=== PATIENT | male | born 1955 | race Caucasian/White ===

== ENCOUNTER → 2016-07-30 | Outpatient (CLI) | payer OTHER ==
[~2016-07-30] MED LIST: DOXY100C2 PO; HYDR1TAB3 PO; PRM25T PO
--- NOTE | 2016-07-30 13:22 | Diagnostic Imaging Report ---
INDICATION: Palpable lump, left scrotum. FINDINGS: The right testicle measures 4.0 x 2.1 x 3.1 cm. The left testicle 4.0 x 2.4 x 2.8 cm. Testicles are homogeneous with no masses. Normal blood flow to both testes. There is hydrocele on the left. There is a large cyst along the epididymis measuring approximately 4.3 x 3.5 cm. Right epididymis shows cyst measuring 2.3 x 1.7 cm. There is normal blood flow to the epididymides. No evidence of varicocele. IMPRESSION: Bilateral cysts in the scrotum largest on the left which does appear somewhat thickwalled. These could represent epididymal cysts; however, these could represent sperm granulomas if patient has had vasectomy. Dictated by: Dictated on workstation # [id number]
== END ==
LOC: RAD 12:05
PROVIDERS: ATTEND Family Medicine
DX: L72.9 Follicular cyst of the skin and subcutaneous tissue, unspecified (principal)
CPT/HCPCS: 76870

== ENCOUNTER 2017-06-09 05:33 | Outpatient (CLI) | payer OTHER ==
[~2017-06-09] VITALS: Ht 177.8 cm; Wt 103.9 kg
[2017-06-09] MEDS ORDERED: OMEP20CA12 PO (10:31)
[2017-06-09] MEDS ORDERED: LOSA25TA21 PO (10:31)
== END 2017-06-09 10:32 ==
LOC: PREOP 05:33
PROVIDERS: ATTEND Surgery
DX: Z01.818 Encounter for other preprocedural examination (principal); K21.9 Gastro-esophageal reflux disease without esophagitis; R13.10 Dysphagia, unspecified

== ENCOUNTER 2017-06-13 12:30 | Day surgery (SDC) | payer OTHER ==
[~2017-06-13] VITALS: Ht 177.8 cm; Wt 103.9 kg
[~2017-06-13 12:30] MED LIST changes: +LOSA25TA21 PO; +OMEP20CA12 PO
[2017-06-13] MEDS ORDERED: NS IV 500 ML 500 ML ONE (12:47)
[2017-06-13 12:55] VITALS: BP 163/88
[2017-06-13] MEDS ORDERED: NS IV 500 ML 500 ML IV PRN (13:14)
--- NOTE | 2017-06-13 14:20 | Conscious Sedation/ASA ---
Conscious Sedation Pre-Proced Time Reviewed: 14:20 ASA Class: 2 Airway Mallampati Classification: (kletsel dehe wintun appropriate class) I. II. III, IV Lungs Heart ASA score ASA 1: a normal healthy patient ASA 2: a patient with a mild systemic disease (mid diabetes, controlled hypertension, obesity ASA 3: a patient with a severe systemic disease that limits activity (angina , COPD, prior Myocardial infarction) ASA 4: a patient with an incapacitating disease that is a constant threat to life (CHF, renal failure) ASA 5: a moribund patient not expected to survive 24 hrs. (ruptured aneurysm) ASA 6: a declared brain patient whose organs are being harvested. For emergent operations, add the letter E after the classification Grade 1 Sedation Plan: Discussed options with patient/fam Note The patient is an appropriate candidate to undergo the planned procedure, sedation, and anesthesia. The patient immediately re-assessed prior to indication. JARVIS WILSON MD Jun 13, 2017 2:20 pm
--- NOTE | 2017-06-13 14:20 | History & Physicial ---
History of Present Illness History of Present Illness Reason for visit/HPI to undergo an upper endoscopy with possible balloon dilatation regarding dysphagia. Date of Admission 06/13/17 Date Seen by Provider: Jun 13, 2017 Time Seen by Provider: 14:18 I consulted on this patient on 06/13/17 14:17 Attending Physician Jarvis Jimenez MD Admitting Physician Paula Dodd MD Consult Allergies and Home Medications Allergies Coded Allergies: No Known Drug Allergies (Unverified , 03/05/10) Home Medications Losartan Potassium 25 Mg Tablet, 25 MG PO DAILY, (Reported) Omeprazole 20 Mg Capsule.dr, 20 MG PO HS, (Reported) Patient Home Medication List Home Medication List Reviewed: Yes Past Ljztnjp-Qjpluj-Irvbni Hx Patient Social History Marrital Status: Employed/Student: retired Alcohol Use: Occasionally Uses Recreational Drug Use: No Smoking Status: Never a Smoker Recent Foreign Travel: No Contact w/other who traveled: No Recent Hopitalizations: No Recent Infectious Disease Expo: No Immunizations Up To Date Tetanus Booster (TDap): Unknown Pediatric: No Surgeries Yes Orthopedic Respiratory No Cardiovascular Yes Hypertension Reproductive System Hx Reproductive Disorders: No Sexually Transmitted Disease: No Gastrointestinal Yes Gastroesophageal Reflux Musculoskeletal Yes Arthritis Constitutional: no symptoms reported EENTM: no symptoms reported Respiratory: no symptoms reported Cardiovascular: no symptoms reported Gastrointestinal: see HPI Genitourinary: no symptoms reported Musculoskeletal: joint pain Skin: no symptoms reported Psychiatric/Neurological: No Symptoms Reported Physical Exam Vital Signs Vital Signs - First Documented 06/13/17 12:55 Temp 98.0 Pulse 75 Resp 18 B/P (MAP) 163/88 (113) Pulse Ox 95 O2 Delivery Room Air Capillary Refill : General Appearance: No Apparent Distress Neck: Normal Inspection Respiratory: Lungs Clear Cardiovascular: Regular Rate, Rhythm, No Edema Gastrointestinal: Non Tender, Soft Back: Normal Inspection Extremity: Normal Inspection Skin: Warm/Dry Assessment/Plan Assessment and Plan gentleman with dysphagia. For upper endoscopy with possible balloon dilatation Problems: Admission Diagnosis Admission Status: Other (Outpt Proc) JARVIS JIMENEZ MD Jun 13, 2017 2:20 pm
[2017-06-13] MEDS ORDERED: fentaNYL INJECTION 100 MCG/2 ML AMP ONE (14:24)
[2017-06-13] MEDS ORDERED: MIDAZOLAM 2 MG/2 ML (VERSED) VIAL ONE ×3 (14:24)
[2017-06-13] MEDS ORDERED: HURRICAINE EXT TUBE (BENZOCAINE) ONE (14:25)
[2017-06-13] MEDS: fentaNYL INJECTION 100 MCG/2 ML AMP IVP PRN ×2 (14:52→14:59)
[2017-06-13] MEDS: MIDAZOLAM 2 MG/2 ML (VERSED) VIAL IVP PRN ×2 (14:54→14:58)
[2017-06-13] MEDS ORDERED: HURRICAINE EXT TUBE (BENZOCAINE) XX ONE (15:15)
[2017-06-13 15:20] VITALS: BP 122/65
[2017-06-13 15:40] VITALS: BP 144/89
--- NOTE | 2017-06-13 15:40 | Endo Procedure Record ---
Endo Procedure Report Date of Procedure Last Colonoscopy: Yes (4 years ago) Jun 13, 2017 Surgeon (s) JARVIS WILSON MD Post Procedure/Op Diagnosis Distal esophageal stricture with active esophagitis Procedure Performed EGD with balloon dilatation Description of Procedure Anesthesia Type: Conscious Sedation Specimen(s) collected/removed None Description of the Procedure Indication for the procedure: This gentleman came in for an upper endoscopy with possible balloon dilatation to address dysphagia. Informed consent was obtained after reviewing the procedure. Description of the procedure: He was placed in left lateral decubitus position and his vital signs were monitored. Conscious sedation was achieved using Versed and fentanyl. The flexible gastroscope was then introduced down the esophagus, past the stomach, into the proximal duodenum. Findings: Esophagus: Inflamed distal esophagus with a peptic stricture. It was dilated to 18 mm with the balloon. Stomach and duodenum were normal He tolerated the procedure well and was taken back to the nursing area in a stable condition. Impression: Dysphagia due to a distal esophageal, peptic stricture. Balloon dilatation completed. Continue proton pump inhibitors. Copies To: PAYAL HURTADO MD, XAVIER M MD Jun 13, 2017 15:40
[2017-06-13 15:57] VITALS: BP 144/89
== END 2017-06-13 15:50 | disposition home or self-care (01) ==
LOC: ENDO 12:30
PROVIDERS: ATTEND Surgery
DX: K22.2 Esophageal obstruction (principal); K20.9 Esophagitis, unspecified; I10 Essential (primary) hypertension

== ENCOUNTER 2017-08-03 10:40 | Emergency (ER) | payer OTHER ==
[~2017-08-03] VITALS: Ht 177.8 cm; Wt 104.3 kg
[2017-08-03] MEDS ORDERED: LIDOCAINE 1% INJ 20 ML 20 ML VIAL ONE (10:47)
[2017-08-03] MEDS ORDERED: LIDOCAINE 2% 20 ML (XYLOCAINE) VIAL INJ ONE (11:00)
[2017-08-03] MEDS ORDERED: TETANUS,DIPTH,PERTUSS P/F (BOOSTRIX) 0.5 ML VIAL IM ONE (11:00)
--- NOTE | 2017-08-03 11:32 | ED EENT ---
History of Present Illness General Chief Complaint: Laceration Stated Complaint: EAR LAC Nursing Triage Note: ARRIVED VIA AMB TO ROOM 07. 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 DENIES LOC OR NECK PAIN. Source: patient Exam Limitations: no limitations History of Present Illness Date Seen by Provider: August 03, 2017 Time Seen by Provider: 11:26 Initial Comments to ER with a laceration to the right ear. 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 His tetanus is not up-to-date.he did not lose consciousness. No other injury. No headache. Timing/Duration: abrupt Severity: mild Associated Symptoms: facial pain/swelling Allergies and Home Medications Allergies Coded Allergies: No Known Drug Allergies (Unverified , 03/05/10) Home Medications Losartan Potassium 25 Mg Tablet, 25 MG PO DAILY, (Reported) Omeprazole 20 Mg Capsule.dr, 20 MG PO HS, (Reported) Patient Home Medication List Home Medication List Reviewed: Yes Review of Systems Constitutional: see HPI Eyes: No Symptoms Reported Ears: See HPI Nose: no symptoms reported Mouth: no symptoms reported Throat: no symptoms reported Respiratory: no symptoms reported Cardiovascular: no symptoms reported Past Yqtagzj-Nokvdy-Rixgln Hx Patient Social History Alcohol Use: Occasionally Uses Recreational Drug Use: No Smoking Status: Never a Smoker Recent Foreign Travel: No Contact w/Someone Who Travel: No Recent Infectious Disease Expo: No Recent Hopitalizations: No Immunizations Up To Date Tetanus Booster (TDap): Unknown PED Vaccines UTD: No Past Medical History Surgeries: Yes Orthopedic Respiratory: No Cardiac: Yes Hypertension Neurological: No Reproductive Disorders: No Sexually Transmitted Disease: No Genitourinary: No Gastrointestinal: Yes Gastroesophageal Reflux Musculoskeletal: Yes Arthritis Endocrine: No Cancer: No Psychosocial: No Integumentary: No Blood Disorders: No Physical Exam Vital Signs Vital Signs - First Documented 08/03/17 10:44 Temp 98.0 Pulse 119 Resp 18 B/P (MAP) 144/99 (114) Pulse Ox 96 General Appearance: WD/WN, no apparent distress Eyes: right eye other (there is a laceration down to the cartilage beginning at the anti-helix and extending posterior to the helix. Separate 1 cm laceration just anterior and inferior to the ear over the right cheek); bilateral eye normal inspection, bilateral eye PERRL, bilateral eye EOMI Ears: right ear canal normal, right ear TM normal; left ear auricle normal Mouth/Throat: normal mouth inspection, pharynx normal Neck: non-tender, full range of motion Cardiovascular: regular rate, rhythm, no murmur Neurologic/Psychiatric: alert, normal mood/affect, oriented x 3 Skin: normal color, warm/dry Procedures/Interventions Wound Location: Ears Wound Length (cm): 3.5 Wound's Depth, Shape: linear, irregular, sub Q (2 cartilage) Wound Explored: clean Irrigated w/ Saline (ccs): 50 (chlorhexidine/saline solution) Anesthesia: 1% Lidocaine Suture: Ethlion Suture Size: 5-0 Number of Sutures: 15 Layer Closure?: 1 Number Deep Layer Sutures: 0 Progress regular block was done using 5 mL of 2% lidocaine without epinephrine. Local anesthesia was done to the laceration anterior and inferior to the right ear. This 1 cm laceration was then closed with 2 simple interrupted 5-0 Ethilon sutures. The laceration to theupper part of the ear beginning at the antihelix extending posteriorly to the helix measured 2.5 cm and extends down to the cartilage. There is no cartilage laceration but the skin has been lifted up off the cartilage. After adequate anesthesia with lidocaine , the traumatic skin flap waslifted and irrigated beneath it with chlorhexidine/saline solution. No foreign bodies identified. Then closed with 13 simple interrupted sutures size 5 -0 Ethilon.folded gauze was placed behind the helix/antihelixand additional gauze placed on top of the outer ear and this was wrapped with Coban to create a pressure dressing to reduce the likelihood of auricular hematoma. I did warn him of this possibility and the possibility of infection so I'll send Keflex antibiotics to [facility], his pharmacy of choice. He does have follow-up already scheduled with Dr. DODD on 08/09 for this will be fine to have her clinic remove the sutures. Progress/Results/Core Measures Results/Orders My Orders Orders - RHYS RESENDIZ APRN Lidocaine 2% Injection 20 Ml (Xylocaine (08/03/17 11:00) Dipht,Pertuss(Acell),Tet Adult (Boostrix (08/03/17 11:00) Lidocaine 1% Inj 20 Ml (Xylocaine 1% Inj (08/03/17 10:47) Medications Given in ED Current Medications Medications Dose Ordered Sig/Hood Route Start Time Stop Time Status Last Admin Dose Admin Diphtheria/ Tetanus/Acell Pertussis 0.5 ml ONCE ONCE IM 08/03/17 11:00 08/03/17 11:01 DC 08/03/17 11:01 0.5 ML Lidocaine HCl 20 ml STK-MED ONCE .ROUTE 08/03/17 10:47 08/03/17 10:53 DC 08/03/17 11:01 20 ML Vital Signs/I&O 08/03/17 10:44 Temp 98.0 Pulse 119 Resp 18 B/P (MAP) 144/99 (114) Pulse Ox 96 Blood Pressure Mean: 114 Departure Impression Primary Impression: Laceration of ear, external, right, complicated Disposition: HOME, SELF-CARE Condition: Stable Departure-Patient Inst. Decision time for Depature: 11:33 Referrals: PAYAL DODD MD (PCP/Family) Primary Care Physician Patient Instructions: Laceration Repair With Stitches (DC) Add. Discharge Instructions: 1. Keep the pressure dressing in place for the next 2-3 days, you may take it off briefly to shower. after 2-3 days you may leave it open to air.Take antibiotics as directed. Return to ER for any swelling of the ear, fevers, increased pain. Tylenol and Motrin for pain control.Follow-up with Dr. Dodd as scheduled to have the stitches removed.All discharge instructions reviewed with patient and/or family. Voiced understanding. Scripts Cephalexin (Keflex) 500 Mg Capsule 500 MG PO QID, #20 CAP Prov: RHYS RESENDIZ INDUSTRIAL PHARMACIST 08/03/17 Images Ear 1 - Laceration 2 - Laceration 3 - Laceration Copy Copies To 1: PAYAL DODD MD, PETER J APRN August 03, 2017 11:32
[2017-08-03] MEDS ORDERED: CEPH-507 PO (11:35)
[2017-08-03 11:36] VITALS: BP 144/99
== END 2017-08-03 11:36 | disposition home or self-care (01) ==
LOC: EDUNIT# 10:40 → ER 10:42
DX: S01.311A Laceration without foreign body of right ear, initial encounter (principal); I10 Essential (primary) hypertension; K21.9 Gastro-esophageal reflux disease without esophagitis; Z23 Encounter for immunization; W55.89XA Other contact with other mammals, initial encounter
CPT/HCPCS: 13132; 90471; 90715

== ENCOUNTER → 2019-08-24 | Outpatient (CLI) | payer MEDICARE, OTHER ==
[~2019-08-24] VITALS: Ht 177 cm; Wt 105.0 kg
[~2019-08-24] MED LIST changes: +CATHETER FLUSH 10 ML SYR IV PRN; +CEPH-507 PO; -LOSA25TA21 PO; +LOSA25TA41 PO; -OMEP20CA12 PO; +OMEP20CA18 PO; +REGADENOSON 0.4 MG/5 ML SYR (LEXISCAN) IV ONE
--- NOTE | 2019-08-24 10:54 | STRESS TEST ---
DATE OF SERVICE: 08/24/2019 RESTING AND POST REGADENOSON TECHNETIUM-99M TETROFOSMIN SPECT CT IMAGING ORDERING PHYSICIAN: Dr. Henry. PRIMARY PHYSICIAN: Dr. Dodd. CLINICAL DIAGNOSIS: Shortness of breath, near syncope and hypertension. Baseline images were carried out after injection of 10.94 mCi of technetium-99m Tetrofosmin. This was followed by 0.4 mg Regadenoson and 31.2 mCi of technetium-99m Tetrofosmin. The electrocardiogram showed sinus rhythm throughout the study. Left anterior fascicular block is seen. Old inferior wall myocardial infarction cannot be excluded. Review of images at rest and following stress indicates a transient basal inferior perfusion defect. Gated images show normal global left ventricular systolic function with normal regional wall motion. Left ventricular ejection fraction is calculated to be to 75%. Left ventricular end diastolic volume is 53 mL. TID is absent (0.88). CONCLUSIONS: 1. This study is indicative of a small to moderate amount of basal inferior ischemia. 2. Normal regional wall motion. 3. Normal global left ventricular systolic function with a calculated ejection fraction of 75%. Job ID: [id number] DocumentID: [id number] Dictated Date: 08/24/2019 10:23:04 Career Coordinator Date: 08/24/2019 10:53:11 Dictated By: USAMA HENRY MD, MA, FACP, FACC,
== END ==
LOC: CARD 07:10
PROVIDERS: ATTEND Internal Medicine Cardiovascular Disease
DX: I10 Essential (primary) hypertension (principal); R06.02 Shortness of breath; R55 Syncope and collapse
CPT/HCPCS: 78452; 93017; A9502

== ENCOUNTER → 2019-08-27 | Outpatient (CLI) | payer MEDICARE, OTHER ==
[~2019-08-27] MED LIST changes: -CATHETER FLUSH 10 ML SYR IV PRN; -REGADENOSON 0.4 MG/5 ML SYR (LEXISCAN) IV ONE
== END ==
LOC: CARD 08:09
PROVIDERS: ATTEND Internal Medicine Cardiovascular Disease
DX: I35.1 Nonrheumatic aortic (valve) insufficiency (principal); I10 Essential (primary) hypertension; R55 Syncope and collapse
CPT/HCPCS: 93225; 93226; 93306

== ENCOUNTER 2019-10-28 10:09 | Emergency (ER) | payer MEDICARE ==
[~2019-10-28] VITALS: Ht 177 cm; Wt 106.0 kg
[~2019-10-28 10:09] MED LIST changes: +ASPI-983 PO; +IBUP1TAB PO; +MTP100TCR PO
[2019-10-28 10:18] VITALS: BP 162/85
--- NOTE | 2019-10-28 10:46 | ED Lower Extremity ---
General Chief Complaint: General Problems/Pain Stated Complaint: POST HEART CATH/LUMP AND BRUISING ON INCISION Nursing Triage Note: ARRIVED VIA AMB TO ROOM 05. HEART CATH ON TUESDAY BY DR HENRY. STATES HE IS HAVING SOME SWELLING AND BRUISING AROUND THE SITE. Nursing Sepsis Screen: No Definite Risk Source: patient Exam Limitations: no limitations History of Present Illness Date Seen by Provider: Oct 28, 2019 Time Seen by Provider: 10:30 Initial Comments Patient presents ER by private conveyance with chief complaint of swelling and about a 1 inch lump in his right groin. He is 6 days status post heart catheterization through the same site by Dr. Henry. He was warning escape or to come back to the ER should this happen. He's not having any chest pain weakness shortness of breath. No stents were placed and no significant disease was discovered per patient. He has not restarted his aspirin since stopping it before the heart catheterization. He is not on blood thinners. He does take his metoprolol routinely. No other symptoms. No numbness or tingling in the foot. Allergies and Home Medications Allergies Coded Allergies: No Known Drug Allergies (Unverified , 03/05/10) Home Medications Ibuprofen/Diphenhydramine Cit 1 Each Tablet, 1 EACH PO HS, (Reported) Metoprolol Succinate 100 Mg Tab.er.24h, 100 MG PO DAILY, (Reported) Patient Home Medication List Home Medication List Reviewed: Yes Review of Systems Constitutional: No chills, No diaphoresis EENTM: No ear discharge, No ear pain Respiratory: No cough, No short of breath Cardiovascular: No chest pain, No edema Gastrointestinal: No abdominal pain, No nausea, No vomiting Genitourinary: No discharge, No dysuria Musculoskeletal: No back pain, No joint pain Skin: see HPI, change in color All Other Systems Reviewed Negative Unless Noted: Yes Past Wicgevy-Uyksbp-Qiyeha Hx Patient Social History Alcohol Use: Occasionally Uses Alcohol Beverage of Choice: Beer Recreational Drug Use: No Smoking Status: Never a Smoker Type Used: Smokeless Tobacco Recent Foreign Travel: No Contact w/Someone Who Travel: No Recent Infectious Disease Expo: No Recent Hopitalizations: No Immunizations Up To Date Tetanus Booster (TDap): Unknown PED Vaccines UTD: No Date of Influenza Vaccine: Jan 09, 2019 Past Medical History Surgeries: Yes (bilat hand sx, EGD, RIGHT EAR SUTURED) Orthopedic Respiratory: No Cardiac: Yes Hypertension Neurological: Yes Concussion Reproductive Disorders: No Sexually Transmitted Disease: No Genitourinary: No Gastrointestinal: Yes Gastroesophageal Reflux Musculoskeletal: Yes Arthritis Endocrine: No Cancer: No Psychosocial: No Integumentary: No Blood Disorders: No Physical Exam Vital Signs Vital Signs - First Documented 10/28/19 10:18 Temp 37.0 Pulse 75 Resp 16 B/P (MAP) 162/85 (110) Pulse Ox 95 O2 Delivery Room Air Capillary Refill : Less Than 3 Seconds Height, Weight, BMI Height: 5'10.00" Weight: 230lbs. 0.0oz. [id number]; 33.00 BMI Method:Stated General Appearance: WD/WN, no apparent distress HEENT: PERRL/EOMI, pharynx normal Neck: full range of motion, normal inspection Cardiovascular: normal peripheral pulses, regular rate, rhythm Respiratory: no respiratory distress, no accessory muscle use Neurologic/Tendon: normal sensation, normal motor functions, normal tendon func tions Neurologic/Psychiatric: no motor/sensory deficits, alert, normal mood/affect, oriented x 3 Skin: ecchymosis (right groin), other (tender palpable 2 x 3 cm lump in the right groin over the right femoral artery. Nonpulsatile.) Procedures/Interventions Suture Size: 5-0 Progress/Results/Core Measures Results/Orders Lab Results Laboratory Tests Test 10/28/19 10:57 Range/Units White Blood Count 6.2 4.3-11.0 10^3/uL Red Blood Count 4.90 4.35-5.85 10^6/uL Hemoglobin 15.2 13.3-17.7 G/DL Hematocrit 44 40-54 % Mean Corpuscular Volume 91 80-99 FL Mean Corpuscular Hemoglobin 31 25-34 PG Mean Corpuscular Hemoglobin Concent 34 32-36 G/DL Red Cell Distribution Width 13.8 10.0-14.5 % Platelet Count 261 130-400 10^3/uL Mean Platelet Volume 9.4 7.4-10.4 FL My Orders Orders - NATALIYA JUAREZ Cbc No Diff (10/28/19 10:46) Vital Signs/I&O 10/28/19 10:18 Temp 37.0 Pulse 75 Resp 16 B/P (MAP) 162/85 (110) Pulse Ox 95 O2 Delivery Room Air Blood Pressure Mean: 110 Progress Progress Note #1: Time: 10:45 Progress Note The lower extremity is intact neurovascularly speaking. He's not having any evidence of acute anemia and ball are is a mild amount of swelling it is unlikely he has dumped his hemoglobin significantly from 15.6 5 days ago. We will catch a hemogram and consult with Dr. Henry, cardiology. Progress Note #2: Time: 13:15 Progress Note The patient advises that he is no longer interested in waiting and would like to go home. We have strongly encouraged that he follow up tomorrow morning with Dr. Henry if he does decide to leave. Dr. Baldwin states that he will be here in a few minutes. We relayed this information to the patient. Patient says he'll wait another 5 minutes. Departure Impression Primary Impression: Hematoma following angiography Disposition: 07 AGAINST MEDICAL ADVICE Condition: Against Medical Advice Departure-Patient Inst. Decision time for Depature: 13:16 Referrals: PAYAL HURTADO MD (PCP/Family) Primary Care Physician Patient Instructions: HEMATOMA Add. Discharge Instructions: Please plan to follow up with Dr. Henry tomorrow by calling for an appointment. Return to the ER should you start to have worsening swelling pain or numbness in the leg. Return to the ER if you start to have shortness of breath or chest pain. All discharge instructions reviewed with patient and/or family. Voiced understanding. NATALIYA JUAREZ Oct 28, 2019 10:45
[2019-10-28 11:08] LABS: HEMOGLOBIN 15.2 G/DL (13.3-17.7); MEAN PLATELET VOLUME 9.4 FL (7.4-10.4); RED CELL DISTRIBUTION WIDTH 13.8 % (10.0-14.5); WHITE BLOOD COUNT 6.2 10^3/uL (4.3-11.0)
--- NOTE | 2019-10-28 11:39 | NUR ---
IN ROOM TALKING TO THE PT AT THIS TIME.
--- NOTE | 2019-10-28 12:01 | NUR ---
PT UP TO THE BATHROOM. I CALLED AND UPDATED THAT WE WERE WAITING ON DR POPE
--- NOTE | 2019-10-28 13:05 | NUR ---
TALKED WITH PT WHO IS FUSTRTED THAT THE DITCH INSPECTOR HAS NOT ARRIVED. NOTIFIED HIM THAT DR JUAREZ WAS TEXTING HIM AGAIN.
--- NOTE | 2019-10-28 13:10 | NUR ---
DR JUAREZ IN TALKING TO THE PT.
== END 2019-10-28 13:19 | disposition left against medical advice (07) ==
LOC: EDUNIT# 10:09 → ER 10:10
DX: L76.32 Postprocedural hematoma of skin and subcutaneous tissue following other procedure (principal); I10 Essential (primary) hypertension; Z87.820 Personal history of traumatic brain injury; Z95.9 Presence of cardiac and vascular implant and graft, unspecified
CPT/HCPCS: 36415; 85027

== ENCOUNTER → 2019-10-29 | Outpatient (CLI) | payer MEDICARE ==
--- NOTE | 2019-10-29 11:54 | Diagnostic Imaging Report ---
Indication: Right groin pain post catheterization. Findings: Common femoral artery and vein are patent, showed normal waveforms. No findings of AV fistula. No aneurysm or pseudoaneurysm identified. There is a fatty reactive lymph node in the right groin. No discrete drainable fluid collection. Impression: No post catheterization complication apparent. Dictated by: Dictated on workstation # [id number]
== END ==
LOC: RAD 09:57
PROVIDERS: ATTEND Nurse Practitioner Family
DX: R10.31 Right lower quadrant pain (principal); Z95.9 Presence of cardiac and vascular implant and graft, unspecified
CPT/HCPCS: 93926

== ENCOUNTER → 2022-05-31 | Outpatient (CLI) | payer MEDICARE ==
[~2022-05-31] MED LIST changes: +ASPI-1238 PO; -ASPI-983 PO
== END ==
LOC: CARD 09:23
PROVIDERS: ATTEND Internal Medicine Cardiovascular Disease
DX: I51.7 Cardiomegaly (principal); I35.1 Nonrheumatic aortic (valve) insufficiency
CPT/HCPCS: 93306

== ENCOUNTER → 2022-06-15 | Outpatient (CLI) | payer MEDICARE ==
[~2022-06-15] VITALS: Ht 177 cm; Wt 109.0 kg
[~2022-06-15] MED LIST changes: +CATHETER FLUSH 10 ML SYR IVP PRN; +REGADENOSON 0.4 MG/5 ML SYR (LEXISCAN) IV ONE
[2022-06-15 08:56] VITALS: BP 167/94
== END ==
LOC: CARD 07:45
PROVIDERS: ATTEND Nurse Practitioner Family
DX: R06.09 Other forms of dyspnea (principal)
CPT/HCPCS: 78452; 93017; A9502

== ENCOUNTER 2023-01-17 07:32 | Emergency (ER) | payer MEDICARE ==
[~2023-01-17] VITALS: Ht 177.8 cm; Wt 104.3 kg
[~2023-01-17 07:32] MED LIST changes: -CATHETER FLUSH 10 ML SYR IVP PRN; -REGADENOSON 0.4 MG/5 ML SYR (LEXISCAN) IV ONE
[2023-01-17] MEDS ORDERED: DIAZ5TAB PO (08:24)
--- NOTE | 2023-01-17 08:28 | ED General ---
General Chief Complaint: Dizziness/Syncope Stated Complaint: DIZZINESS Nursing Triage Note: PT AMB TO [facility] 3 WITH COMPLAINT OF DIZZINESS. STATES STARTED THIS AM WHEN HE WOKE UP AT 430. STATES VOMITED ONCE. DENIES CP, SOA. STATES HAS BEEN DOING A TOPICAL CREAM FOR SKIN CANCER. Source of Information: Patient Exam Limitations: No Limitations History of Present Illness Date Seen by Provider: Jan 17, 2023 Time Seen by Provider: 08:30 Initial Comments 67-year-old male presents with acute onset of vertiginous symptoms this morning at 5:00. States they resolved when he is at rest no fever no recent trauma no pain no neurologic deficit no chest pain or shortness of breath he did have 1 episode of emesis states it was the dizziness that made him vomit. Currently in normal state of health denies any symptoms whatsoever. Will evaluate for other causes of acute dizziness discussed deferring CT at this time as this seems unnecessary. Patient and agree however discussed if needed we can do this later on during the evaluation they agree with this plan. Patient does have a history of some tinnitus states has been worsening but it is chronic did discuss otolaryngology follow-up as needed. Only new medications are atorvastatin and a topical chemotherapeutic agent for skin cancer on his chest. Advised both of these could potentially cause vertiginous symptoms. Patient voices understanding. Timing/Duration: 1-3 Hours Severity: Mild Modifying Factors: improves with Movement Associated Systoms: Denies Symptoms Allergies and Home Medications Allergies Coded Allergies: No Known Drug Allergies (Unverified , 03/05/10) Patient Home Medication List Home Medication List Reviewed: Yes Diazepam (Valium) 5 Mg Tablet, 5 MG PO NEEDED PRN for DIZZINESS Prescribed by: Martha Davis on 01/17/23 0825 Ibuprofen/Diphenhydramine Cit (Ibuprofen Pm Caplet) 1 Each Tablet, 1 EACH PO HS, (Reported) Entered as Reported by: HARMONY QUEZADA on 10/23/19 1040 Metoprolol Succinate (Metoprolol Succinate) 100 Mg Tab.er.24h, 100 MG PO DAILY, (Reported) Entered as Reported by: HARMONY QUEZADA on 10/23/19 1040 Review of Systems Review of Systems Constitutional: see HPI, dizziness EENTM: see HPI, other (Tinnitus) Respiratory: no symptoms reported Cardiovascular: no symptoms reported Gastrointestinal: no symptoms reported Genitourinary: no symptoms reported Musculoskeletal: no symptoms reported Skin: see HPI Psychiatric/Neurological: No Symptoms Reported Hematologic/Lymphatic: No Symptoms Reported Immunological/Allergic: no symptoms reported All Other Systems Reviewed Negative Unless Noted: Yes Past Qbhqdmh-[id number]-Ubhocj Hx Patient Social History Tobacco Use?: No Use of E-Cig and/or Vaping dev: No Substance use?: No Alcohol Use?: No Pt feels they are or have been: No Immunizations Up To Date Tetanus Booster (TDap): Unknown PED Vaccines UTD: No Past Medical History Surgeries: Yes (bilat hand sx, EGD, RIGHT EAR SUTURED) Orthopedic Respiratory: No Cardiac: Yes Hypertension Neurological: Yes Concussion Reproductive Disorders: No Sexually Transmitted Disease: No Genitourinary: No Gastrointestinal: Yes Gastroesophageal Reflux Musculoskeletal: Yes Arthritis Endocrine: No Cancer: No Psychosocial: No Integumentary: No Blood Disorders: No Physical Exam Vital Signs Vital Signs - First Documented 01/17/23 07:49 Temp 35.7 Pulse 57 Resp 26 B/P (MAP) 142/83 (102) Pulse Ox 95 O2 Delivery Room Air Capillary Refill : Height, Weight, BMI Height: 5'10.00" Weight: 230lbs. 0.0oz. [id number]; 32.00 BMI Method:Stated General Appearance: No Apparent Distress, WD/WN Eyes: Bilateral Eye Normal Inspection, Bilateral Eye PERRL, Bilateral Eye EOMI HEENT: PERRL/EOMI, TMs Normal, Normal ENT Inspection, Pharynx Normal Neck: Full Range of Motion, Normal Inspection, Non Tender, Supple Respiratory: Chest Non Tender, Lungs Clear, Normal Breath Sounds, No Accessory Muscle Use, No Respiratory Distress Cardiovascular: Regular Rate, Rhythm, No Edema, No Gallop, No JVD, No Murmur, Normal Peripheral Pulses Gastrointestinal: Normal Bowel Sounds, Non Tender, Soft Back: No CVA Tenderness, No Vertebral Tenderness Extremity: Normal Inspection, Normal Range of Motion, Non Tender, No Pedal Edema Neurologic/Psychiatric: Alert, Oriented x3, No Motor/Sensory Deficits, Normal Mood/Affect, launch leader II-XII Norm as Tested Skin: Normal Color, Warm/Dry, Other (Erythematous rash on superior chest sec ondary to topical chemotherapeutic agent) Procedures/Interventions Suture Size: 5-0 Progress/Results/Core Measures Suspected Sepsis SIRS Temperature: Pulse: 57 Respiratory Rate: 26 Laboratory Tests 01/17/23 08:39: White Blood Count 4.7 Blood Pressure 142 /83 Mean: 102 Laboratory Tests 01/17/23 08:39: Creatinine 0.96, Platelet Count 238, Total Bilirubin 0.4 Results/Orders Lab Results Laboratory Tests Test 01/17/23 08:39 01/17/23 09:57 Range/Units White Blood Count 4.7 4.3-11.0 10^3/uL Red Blood Count 4.97 4.30-5.52 10^6/uL Hemoglobin 15.5 13.3-17.7 g/dL Hematocrit 47 40-54 % Mean Corpuscular Volume 94 80-99 fL Mean Corpuscular Hemoglobin 31 25-34 pg Mean Corpuscular Hemoglobin Concent 33 32-36 g/dL Red Cell Distribution Width 12.8 10.0-14.5 % Platelet Count 238 130-400 10^3/uL Mean Platelet Volume 9.4 9.0-12.2 fL Immature Granulocyte % (Auto) 0 % Neutrophils (%) (Auto) 69 42-75 % Lymphocytes (%) (Auto) 19 12-44 % Monocytes (%) (Auto) 8 0-12 % Eosinophils (%) (Auto) 3 0-10 % Basophils (%) (Auto) 1 0-10 % Neutrophils # (Auto) 3.3 1.8-7.8 10^3/uL Lymphocytes # (Auto) 0.9 L 1.0-4.0 10^3/uL Monocytes # (Auto) 0.4 0.0-1.0 10^3/uL Eosinophils # (Auto) 0.1 0.0-0.3 10^3/uL Basophils # (Auto) 0.0 0.0-0.1 10^3/uL Immature Granulocyte # (Auto) 0.0 0.0-0.1 10^3/uL Erythrocyte Sedimentation Rate 3 0-30 MM/HR Sodium Level 137 135-145 MMOL/L Potassium Level 4.5 3.6-5.0 MMOL/L Chloride Level 108 H 98-107 MMOL/L Carbon Dioxide Level 21 21-32 MMOL/L Anion Gap 8 5-14 MMOL/L Blood Urea Nitrogen 14 7-18 MG/DL Creatinine 0.96 0.60-1.30 MG/DL Estimat Glomerular Filtration Rate 86 BUN/Creatinine Ratio 15 Glucose Level 117 H 70-105 MG/DL Calcium Level 8.9 8.5-10.1 MG/DL Corrected Calcium 9.1 8.5-10.1 MG/DL Magnesium Level 1.9 1.6-2.4 MG/DL Total Bilirubin 0.4 0.1-1.0 MG/DL Aspartate Amino Transf (AST/SGOT) 24 5-34 U/L Alanine Aminotransferase (ALT/SGPT) 29 0-55 U/L Alkaline Phosphatase 71 40-136 U/L Total Protein 6.8 6.4-8.2 GM/DL Albumin 3.8 3.2-4.5 GM/DL Urine Color YELLOW Urine Clarity CLEAR Urine pH 6.0 5-9 Urine Specific [place] 1.025 H 1.016-1.022 Urine Protein NEGATIVE NEGATIVE Urine Glucose (UA) NEGATIVE NEGATIVE Urine Ketones NEGATIVE NEGATIVE Urine Nitrite NEGATIVE NEGATIVE Urine Bilirubin NEGATIVE NEGATIVE Urine Urobilinogen 0.2 < = 1.0 MG/DL Urine Leukocyte Esterase NEGATIVE NEGATIVE Urine RBC (Auto) NEGATIVE NEGATIVE Urine RBC NONE /HPF Urine WBC NONE /HPF Urine Squamous Epithelial Cells NONE /HPF Urine Crystals NONE /LPF Urine Bacteria NEGATIVE /HPF Urine Casts NONE /LPF Urine Mucus NEGATIVE /LPF Urine Culture Indicated NO My Orders Orders - MARTHA DAVIS DO Cbc And Automated Diff (01/17/23 08:19) Comprehensive Metabolic Panel (01/17/23 08:19) Magnesium (01/17/23 08:19) Ua Culture If Indicated (01/17/23 08:19) Erythrocyte Sedimentation Rate (01/17/23 08:19) Orthostatic Vital Signs (Adult (01/17/23 08:19) Diazepam Tablet (Diazepam Tablet) (01/17/23 08:30) Medications Given in ED Current Medications Medications Dose Ordered Sig/Hood Route Start Time Stop Time Status Last Admin Dose Admin Diazepam 5 mg ONCE ONCE PO 01/17/23 08:30 01/17/23 08:31 DC 01/17/23 08:34 5 MG Vital Signs/I&O 01/17/23 01/17/23 07:49 08:53 Temp 35.7 Pulse 57 56 59 59 Resp 26 B/P (MAP) 142/83 (102) 140/75 (96) 141/89 (106) 135/79 (97) Pulse Ox 95 O2 Delivery Room Air Capillary Refill : Blood Pressure Mean: 102 Progress Note : Progress Note Very pleasant nondistressed 67-year-old male presents with vertiginous symptoms. States that 5 this morning he got up to go to the bathroom states he would turn his head in the room seem to lag and then would catch up causing him to be dizzy he did have one episode of emesis he states he is asymptomatic when sitting still but when he gets up to walk the room spins. He recently started atorvastatin as well as a topical chemotherapeutic agent for skin cancer that is on his upper chest. Denies any recent illness no trauma. He states he does have some ringing in his ears this is chronic but has been worsening lately advised he would probably want to follow-up with ear nose and throat secondary to onset of tinnitus followed by vertigo. Patient voices understanding and agrees. is in room and agrees with this 2. Discussed plan to evaluate w ith basic labs and provide 5 mg of Valium to reassess symptoms at this time I do not feel a CAT scan is warranted he is neurologically intact he is conscious alert and oriented x4 no neurodeficits whatsoever symptoms consistent with peripheral nerve issue as opposed to [employer] pathology or stroke. Patient and agree with this plan. He currently denies nausea no chest pain denies pain anywhere in fact. Patient is feeling slightly better after Valium. Advised this may take some time to completely resolve, follow up with PCP or chiropracter for vertigo maneuvers. Patient Agrees. Labs unremarkable for any acute findings. ECG Initial ECG Rhythm: S.Huang Departure Impression Primary Impression: Vertigo Disposition: 01 HOME, SELF-CARE Condition: Improved Departure-Patient Inst. Referrals: PAYAL HURTADO MD (PCP/Family) Primary Care Physician Patient Instructions: Vertigo (a Type of Dizziness) (DC) Add. Discharge Instructions: Follow-up with your primary care physician this week. Discussed visit here today and symptoms of vertigo may want to also address the ringing in your ears for ear nose and throat referral. Take medication as directed, drink plenty of water. Do not operate machinery or drive after taking Valium as it can cause some impaired judgment but should help with your symptoms. Return for concerns or problems. All discharge instructions reviewed with patient and/or family. Voiced understanding. Scripts Diazepam (Valium) 5 Mg Tablet 5 MG PO NEEDED PRN for DIZZINESS for 7 Days, #21 TAB Prov: MARTHA DAVIS DO 01/17/23 MARTHA DAVIS DO Jan 17, 2023 08:28
[2023-01-17] MEDS ORDERED: diazePAM 5 MG TABLET PO ONE (08:30)
[2023-01-17 08:47] LABS: BASOPHILS % (AUTO) 1 % (0-10); EOSINOPHILS # (AUTO) 0.1 10^3/uL (0.0-0.3); EOSINOPHILS % (AUTO) 3 % (0-10); HEMATOCRIT 47 % (40-54); HEMOGLOBIN 15.5 g/dL (13.3-17.7); LYMPHOCYTES # (AUTO) 0.9 10^3/uL (1.0-4.0); LYMPHOCYTES % (AUTO) 19 % (12-44); MEAN CORPUSCULAR HEMOGLOBIN 31 pg (25-34); MEAN CORPUSCULAR HGB CONC 33 g/dL (32-36); MEAN CORPUSCULAR VOLUME 94 fL (80-99); MEAN PLATELET VOLUME 9.4 fL (9.0-12.2); MONOCYTES # (AUTO) 0.4 10^3/uL (0.0-1.0); MONOCYTES % (AUTO) 8 % (0-12); NEUTROPHILS # (AUTO) 3.3 10^3/uL (1.8-7.8); NEUTROPHILS % (AUTO) 69 % (42-75); PLATELET COUNT 238 10^3/uL (130-400); WHITE BLOOD COUNT 4.7 10^3/uL (4.3-11.0)
[2023-01-17 08:53] VITALS: BP_SYST 135; BP_SYST 140; BP_SYST 141; BP_DIAS 75; BP_DIAS 79; BP_DIAS 89
[2023-01-17 08:56] LABS: ALBUMIN 3.8 GM/DL (3.2-4.5)
[2023-01-17 08:57] LABS: POTASSIUM 4.5 MMOL/L (3.6-5.0)
[2023-01-17 08:58] LABS: CALCIUM 8.9 MG/DL (8.5-10.1)
[2023-01-17 08:59] LABS: TOTAL PROTEIN 6.8 GM/DL (6.4-8.2)
[2023-01-17 09:01] LABS: BILIRUBIN,TOTAL 0.4 MG/DL (0.1-1.0)
[2023-01-17 09:03] LABS: CREATININE SERUM 0.96 MG/DL (0.60-1.30)
[2023-01-17 09:05] LABS: MAGNESIUM 1.9 MG/DL (1.6-2.4)
[2023-01-17 09:25] LABS: ERYTHROCYTE SEDIMENTATION RATE 3 MM/HR (0-30)
[2023-01-17 10:37] LABS: CLARITY,URINE CLEAR; COLOR,URINE YELLOW; GLUCOSE, URINE (UA) NEGATIVE (NEGATIVE); PROTEIN,URINE NEGATIVE (NEGATIVE)
[2023-01-17 10:38] LABS: BACTERIA,URINE NEGATIVE /HPF; BILIRUBIN,URINE NEGATIVE (NEGATIVE); KETONES,URINE NEGATIVE (NEGATIVE); LEUKOCYTE ESTERASE ,URINE NEGATIVE (NEGATIVE); NITRITE,URINE NEGATIVE (NEGATIVE)
[2023-01-17 10:55] VITALS: BP 138/81
== END 2023-01-17 10:55 | disposition home or self-care (01) ==
LOC: EDUNIT# 07:32 → ER 07:33
DX: R42 Dizziness and giddiness (principal)
CPT/HCPCS: 36415; 80053; 81000; 83735; 85025; 85652